=== PATIENT | female | born 1995 | race African-American/Black ===

== ENCOUNTER 2020-05-03 14:37 | Inpatient (IN) ==
[2020-05-03] MEDS ORDERED: AMPICILLIN INJ 2,000 MG in SODIUM CHLORIDE 0.9% 100 ML IV ONE (15:13)
[2020-05-03] MEDS ORDERED: LACTATED RINGERS 500 ML IV PRN (15:21)
[2020-05-03] MEDS ORDERED: ONDANSETRON 4 MG/2 ML VIAL IV PRN (15:21)
[2020-05-03 15:43] LABS: Basophils % 0.3 % (0.0-0.8); Eosinophils # 0.2 10*3/uL (0.0-0.87); Hematocrit 30.4 VOL% (35.7-47.0); Hemoglobin 9.2 GM/DL (12.0-16.0); Immature Granulocytes % 0.4 %; Immature Granulocytes Absolute 0.03 #; Lymphocytes # 1.8 10*3/uL (1.4-4.0); Lymphocytes % 23.2 % (21.3-54.2); Mean Corpuscular HGB Conc 30.3 GM/DL (32-36); Mean Corpuscular Volume 90.2 FL (87-102); Mean Platelet Volume 11.5 FL (9.6-12.0); Monocytes % 9.6 % (1.7-12.7); Neutrophils % 64.5 % (38.7-73.9); Platelet Count 297 T/CUMM (130-400); Red Blood Count 3.37 MC/CUMM (3.8-5.5); Red Cell Distribution Width 16.9 % (9.3-17.3); White Blood Count 7.6 T/CUMM (4-12)
[2020-05-03 16:31] LABS: Eosinophils 4 % (0-10); Lymphocytes 21 % (20-55); Macrocytosis 1+; Platelet Estimate Adequate; Polychromasia 1+; Segmented Neutrophils 68 % (50-85); Total Cells Counted 100
[2020-05-03 21:26] LABS: Barbiturates Screen,Urine Negative (Negative); Benzodiazepines Screen,Urine Negative (Negative); Cannabinoid Screen,Urine Negative (Negative); Opiate Screen,Urine Negative (Negative); Phencyclidine Screen,Urine Negative (Negative)
[2020-05-03] MEDS: AMPICILLIN INJ 1,000 MG in SODIUM CHLORIDE 0.9% 100 ML IV SCH (22:08)
[2020-05-04] MEDS: AMPICILLIN INJ 1,000 MG in SODIUM CHLORIDE 0.9% 100 ML IV SCH ×3 (02:34→10:14)
[2020-05-04] MEDS: LACTATED RINGERS 1,000 ML IV SCH ×2 (03:09→09:01)
[2020-05-04] MEDS ORDERED: PROMETHAZINE 25 MG/1 ML VIAL IM ONE (07:35)
[2020-05-04] MEDS ORDERED: hydrOXYzine HCL 25 MG/1 ML VIAL IM PRN (07:35)
[2020-05-04] MEDS ORDERED: ePHEDrine 50 MG/ML VIAL IV PRN (07:35)
[2020-05-04] MEDS ORDERED: diphenhydrAMINE 50 MG/1 ML VIAL IV PRN ×2 (07:35)
[2020-05-04] MEDS ORDERED: FAMOTIDINE 20 MG/2 ML VIAL IV ONE (07:35)
[2020-05-04] MEDS ORDERED: NALOXONE 0.4 MG/ML VIAL IV PRN (07:35)
[2020-05-04] MEDS ORDERED: CITRIC ACID/SODIUM CITRATE 30 ML UDCUP PO ONE (07:35)
[2020-05-04] MEDS ORDERED: TRANEXAMIC ACID 1,000 MG/10 ML VIAL ONE (07:44)
[2020-05-04] MEDS ORDERED: miSOPROStoL 200 MCG TABLET ONE (07:44)
[2020-05-04] MEDS ORDERED: METHYLERGONOVINE 0.2 MG/1 ML AMP ONE (07:45)
[2020-05-04] MEDS ORDERED: CARBOPROST TROMETHAMINE 250 MCG/ML AMP IM ONE (07:45)
[2020-05-04] MEDS ORDERED: SODIUM CHLORIDE 0.9% 0 ML IV ONE (07:46)
[2020-05-04] MEDS ORDERED: fentaNYL 2 MCG/ROPIV 0.2% EPID 100 ML EPIDURAL SCH (08:00)
[2020-05-04] MEDS ORDERED: OXYTOCIN/LR 20 UNIT/1,000 ML BAG IV SCH (08:30)
[2020-05-04 09:22] LABS: Apearance,Urine CLEAR (Clear); Bilirubin,Urine Negative (Negative); Blood, Urine Small mg/dL (Negative); Glucose,Urine (UA) Negative (Negative); Ketones,Urine Negative (Negative); Mucus,Urine Occasional /LPF (Occasional); Nitrite,Urine Negative (Negative); Protein,Urine Negative; RBC,Urine 1 /HPF (0-4); Squamous Epithelial Cell,Urine Occasional /HPF (0-10); Urine Color Yellow (Yellow); Urine Specific Gravity 1.013 (1.001-1.035); Urine Urobilinogen < 2.0 EU/DL (0.2-1.0); WBC,Urine <1 /HPF (0-6)
[2020-05-04] MEDS ORDERED: ACETAMINOPHEN 325 MG TABLET PO PRN (11:29)
[2020-05-04] MEDS ORDERED: ONDANSETRON 4 MG/2 ML VIAL IV PRN (11:29)
[2020-05-04] MEDS ORDERED: BENZOCAINE 20%/MENTHOL 0.5% SPRAY 56 GM CAN TOP PRN (11:29)
[2020-05-04] MEDS ORDERED: LANOLIN 50% CREAM 0.3 OZ TUBE TOP PRN (11:29)
[2020-05-04] MEDS ORDERED: HYDROCORTISONE 2.5% RECTAL CREAM 30 GM TUBE TOP PRN (11:29)
[2020-05-04] MEDS ORDERED: DIPH/TET/ACEL PERT BOOSTER VACCINE 0.5 ML VIAL IM ONE (11:29)
[2020-05-04] MEDS ORDERED: MEASLES/MUMPS/RUBELLA VACCINE 0.5 ML VIAL SUBCUT ONE (11:29)
[2020-05-04] MEDS ORDERED: RHO(D) IMMUNE GLOBULIN 300 MCG SYRINGE IM ONE (11:29)
[2020-05-04] MEDS ORDERED: BISACODYL 10 MG SUPP RECTAL PRN (11:29)
[2020-05-04] MEDS ORDERED: oxyCODONE/ACETAMINOPHEN 5-325 MG TABLET PO PRN ×2 (11:29)
[2020-05-04] MEDS ORDERED: DOCUSATE/SENNA 50-8.6 MG TABLET PO PRN (11:29)
[2020-05-04] MEDS ORDERED: WITCH HAZEL PADS 100/JAR TOP PRN (11:29)
[2020-05-04] MEDS ORDERED: OXYTOCIN/LR 20 UNIT/1,000 ML BAG IV ONE (11:29)
[2020-05-04] MEDS ORDERED: IBUPROFEN 800 MG TABLET PO PRN (11:29)
[2020-05-04 11:41] LABS: Cord Arterial Blood HCO3 21.2 MMOL/L
[2020-05-04 11:44] LABS: Cord Venous Blood HCO3 21.7 MMOL/L; Cord Venous Blood PCO2 49.6 MMHG; Cord Venous Blood PO2 23.6
[2020-05-04] MEDS: FERROUS SULFATE 325 MG TABLET PO SCH ×2 (15:44→21:09)
[2020-05-04] MEDS: DOCUSATE SODIUM 100 MG CAPSULE PO SCH (21:09)
[2020-05-05 07:27] LABS: Basophils % 0.3 % (0.0-0.8); Eosinophils # 0.1 10*3/uL (0.0-0.87); Eosinophils % 0.9 % (0.00-10.9); Hematocrit 31.5 VOL% (35.7-47.0); Hemoglobin 9.7 GM/DL (12.0-16.0); Immature Granulocytes % 0.3 %; Immature Granulocytes Absolute 0.03 #; Lymphocytes # 2.3 10*3/uL (1.4-4.0); Lymphocytes % 26.3 % (21.3-54.2); Mean Corpuscular HGB Conc 30.8 GM/DL (32-36); Mean Corpuscular Volume 90.5 FL (87-102); Mean Platelet Volume 11.2 FL (9.6-12.0); Neutrophils % 63.2 % (38.7-73.9); Platelet Count 293 T/CUMM (130-400); Red Blood Count 3.48 MC/CUMM (3.8-5.5); Red Cell Distribution Width 17.1 % (9.3-17.3); White Blood Count 8.9 T/CUMM (4-12)
[2020-05-05] MEDS: DOCUSATE SODIUM 100 MG CAPSULE PO SCH ×2 (10:03→21:46)
[2020-05-05] MEDS: MULTIVITAMIN (PRENATAL) TABLET PO SCH (10:04)
[2020-05-05] MEDS: FERROUS SULFATE 325 MG TABLET PO SCH ×2 (10:04→21:46)
[2020-05-06 07:21] VITALS: BP 105/51
[2020-05-06] MEDS: DOCUSATE SODIUM 100 MG CAPSULE PO SCH (08:40)
[2020-05-06] MEDS: FERROUS SULFATE 325 MG TABLET PO SCH (08:40)
[2020-05-06] MEDS: MULTIVITAMIN (PRENATAL) TABLET PO SCH (08:40)
== END 2020-05-06 10:35 | disposition home or self-care (01) | DRG 560 ==
LOC: N.LDOUT 14:37 → N.LD 14:45 → N.OB 05-04 13:58
PROVIDERS: ADMIT Obstetrics & Gynecology; ATTEND Obstetrics & Gynecology